=== PATIENT | male | born 1955 | race Caucasian/White ===

== ENCOUNTER → 2020-09-19 | Outpatient (CLI) | payer MEDICARE ==
--- NOTE | 2020-09-20 10:49 | SLEEP ---
DATE OF STUDY: 09/19/2020 The patient is a 65-year-old who weighs 190 pounds with a BMI of 25.8. The patient's [place] score was 9. The patient underwent home sleep study performed by [facility]. Total recording time was 451 minutes. During the night study, the patient had 33 obstructive apneas, no central apneas, 8 mixed apneas and 23 hypopneas. The patient's AHI was 15.8 per hour. Nocturnal oximetry study revealed an average oxygen saturation of 93% with a lowest of 80%. Twelve minutes were spent with oxygen saturation less than 90%. Mean heart rate 61 beats per minute. IMPRESSION: 1. Moderate obstructive sleep apnea at an AHI of 15.8 per hour. 2. Mild nocturnal hypoxia secondary to obstructive sleep apnea. RECOMMENDATIONS: 1. The patient will benefit from treatment of sleep apnea with CPAP. 2. Weight loss is advised. 3. Avoid INCUBATOR OPERATOR depressants. 4. Cautioned regarding driving until symptoms of sleep apnea resolve with above recommendations. PERRY DR: Lance TID: [id number]
== END ==
LOC: RT 08:01
PROVIDERS: ATTEND Family Medicine
DX: G47.33 Obstructive sleep apnea (adult) (pediatric) (principal); G47.34 Idiopathic sleep related nonobstructive alveolar hypoventilation; R06.83 Snoring
CPT/HCPCS: G0399

== ENCOUNTER → 2020-10-27 | Outpatient (CLI) | payer MEDICARE ==
[~2020-10-27] MED LIST: ZOLPIDEM 5 MG TABLET. PO ONE
--- NOTE | 2020-10-31 12:55 | SLEEP ---
DATE OF STUDY: 10/27/2020 SLEEP STUDY ATTENDING PHYSICIAN: Curtis Reyes MD. The patient is a 65-year-old who weighs 190 pounds with a BMI of 26. The patient's [place] score was 10. The patient had a previous sleep study and was found to have moderate NAVA at an AHI of 15.8 per hour. The patient was referred for an in-lab CPAP titration study. During the night study, the patient spent 410 minutes in bed and slept for 309 minutes with a sleep efficiency of 75%. Sleep latency was 22 minutes with a REM latency of 183 minutes. Sleep architecture showed normal stage 1 and stage 2 sleep, normal slow wave and normal REM sleep. EKG monitoring revealed no sustained arrhythmias. PLMs were seen at an index of 55 per hour and 13 per hour caused EEG arousals. The patient was started on CPAP at a pressure of 5 cm water and titrated up to 7 cm water. At the final pressure, the patient slept for 234 minutes. The patient had supine sleep, but no REM sleep. The patient's AHI was reduced to 1 per hour and oxygen saturation remained above 91%. The patient used a large size nasal mask. IMPRESSION: 1. Sleep apnea diagnosed by previous sleep study. 2. Severe periodic limb movements at an index of 55 per hour and 13 per hour caused EEG arousals. RECOMMENDATIONS: 1. CPAP at 7 cm water completely eliminated the patient's sleep apnea and should be used on a nightly basis. 2. Follow up in 4-6 weeks to assess compliance with CPAP and to document clinical improvement. 3. Avoid PODIATRIST ASSISTANT depressants. 4. Cautioned regarding driving until symptoms of sleep apnea resolve with the use of CPAP. 5. The patient has severe PLMs. The patient should be further evaluated for symptoms of restless legs during the day. VALERIY/JIA DR: Lance TID: [id number] CC: CURTIS REYES MD
== END ==
LOC: RT 19:10
PROVIDERS: ATTEND Family Medicine
DX: G47.33 Obstructive sleep apnea (adult) (pediatric) (principal)
CPT/HCPCS: 95811